=== PATIENT | female | born 1995 | race Caucasian/White ===

== ENCOUNTER 2017-06-05 12:17 | Emergency (ER) | payer OTHER ==
[~2017-06-05 12:17] MED LIST: AMOXICILLIN PO; AUGMENTIN875 MG PO; DICLOFENAC GEL; IBUPROFEN IN40 MG/ML PO; IBUPROFEN800 MG PO; MOTRIN600 M1 PO; NO MEDICATIONS; SUDAFED30 M1 PO; ZYRTEC10 M1 PO
== END 2017-06-05 13:35 | disposition home or self-care (01) ==
LOC: SED 12:17
DX: J06.9 Acute upper respiratory infection, unspecified (principal)
CPT/HCPCS: 99284